=== PATIENT | female | born 1990 | race Caucasian/White ===

== ENCOUNTER 2016-07-27 00:06 | Inpatient (IN) | payer MEDICAID ==
[~2016-07-27 00:06] MED LIST: LIDOCAINE HCL 50 ML VIAL PERI PRN; ONDANSETRON HCL/PF 2 MG/ML VIAL IV PRN; OXYTOCIN/DEXTROSE 5%-WATER 30 UNITS/500 ML BAG IV ONE; RINGERS SOLUTION,LACTATED 1,000 ML IV ONE
[2016-07-27] MEDS: DEXTROSE 5%-LACTATED RINGERS 1,000 ML IV PRN ×2 (00:40→04:44)
[2016-07-27] MEDS ORDERED: BUPIVACAINE HCL/0.9 % NACL/PF 250 ML EP PRN (06:14)
[2016-07-27] MEDS ORDERED: fentaNYL CITRATE/PF 50 MCG/ML AMPUL IT SCH (06:15)
--- NOTE | 2016-07-27 06:19 | OR ---
Anesthesia Pre Procedure Eval Date of Service: 07/27/16 Pre Procedure Evaluation: Last Vital Signs Temp 36.3 C L 01/24/16 14:21 Pulse Resp BP 115/62 01/24/16 14:21 Pulse Ox Anesthesia Pre Procedure Evaluation Heart Rate:78 Blood Pressure: 114/79 Termperature:36.7 Respiratory Rate:18 SaO2:100 DATE: 07/27/2016 TIME: 6:15 INDICATIONS: Active labor, labor pain PAST MEDICAL HISTORY: Multipara patient in active labor requesting labor analgesia EXAM: Heart regular; lungs clear ASSESSMENT OF MEDICAL STATUS: Appropriate candidate for labor analgesia PLANNED PROCEDURE: Combination spinal epidural for labor analgesia Home Medications: HOME MEDICATIONS Vit#96/Ferrous Fum/FA [ S] 1 tab PO DAILY 08/22/13 [Last Taken 07/26/16 09:00] Iron 1 tab PO DAILY 02/23/14 [Last Taken 07/26/16 09:00] Ibuprofen [Motrin] 200 - 800 mg PO Q6H PRN #100 tab 05/03/14 [Last Taken Unknown ] Atenolol [Tenormin] 1 tab PO DAILY 07/27/16 [Last Taken 07/26/16 09:00] Magnesium 250 mg PO BID 07/27/16 [Last Taken 07/26/16 21:00] Ranitidine HCl [Zantac] 1 tab PO PRN 07/27/16 [Last Taken 07/26/16 21:00]
--- NOTE | 2016-07-27 06:50 | OR ---
Anesthesia Procedure Note - Anesthesia Procedure Note Date of Service: 07/27/16 Narrative: Vital Signs - Last Taken Temp 36.3 C L 01/24/16 14:21 Pulse Resp BP 115/62 01/24/16 14:21 Pulse Ox 07/27/16 06:48 ANESTHESIA PROCEDURE NOTE Date of Procedure: 07/27/2016 Time of procedure: 08 22. Performed by: SYLWIA Hernandez CRNA, MSN Stick Inserter: Roopa Horan RN. Preprocedure diagnosis: Active labor, labor pain. Post procedure diagnosis: Same. Procedure: Labor Epidural Placement L3 4. Indications: Labor pains. Findings: See below. Details of the procedure: The patient was placed on the side of the bed in sitting position. The patient was prepped with DuraPrep and draped in a sterile fashion. Lidocaine 1% was infiltrated to the skin and subcutaneous tissues at the level of the L3 4 interspace. The epidural space was identified using a 18-gauge Tuohy needle with [id number] technique. Fentanyl 20 g was given intrathecally the intrathecal needle was then removed and the epidural catheter was threaded approximately 4 cm, the epidural needle was then removed, and after careful aspiration 3 mL of 1.5% lidocaine with 1-200,000 epinephrine was injected without change in maternal heart rate or sensorium. The catheter was then taped in place. EBL: Minimal. Fluids: N/A. Specimen: N/A. Post procedure condition: The patient tolerated the procedure well with good relief. No complications were noted. Thank you for this consultation. Joseph Munoz CRNA, SUCTION ROLLER, MSN
--- NOTE | 2016-07-27 07:54 | OR ---
Operative Report - Dictated Report Narrative: Spontaneous vaginal delivery of viable male at 0710 on 07/27/2016 with Apgars 8 and 9, weighing 3749 g, in KIMMY position. Nuchal cord 1. Cord clamping delayed approximately 1 minute Placenta delivered complete, intact, with three vessel cord Estimated blood loss: less than 50 ml Lacerations: Second-degree vaginal laceration (3 cm) repaired with 3-0 Vicryl Rapide History for MU Definition: * The number of deliveries resulting in a live the patient experienced prior to current hospitalization * The previous delivery of live twins or any live multiple gestation is considered one live event. *If primagravida or nulliparous is documented select zero for the number of previous live births. Live Events: 3
[2016-07-27] MEDS ORDERED: BISACODYL 10 MG SUPP.RECT RC PRN (07:56)
[2016-07-27] MEDS ORDERED: HYDROCORTISONE 30 APPL TUBE TP PRN (07:56)
[2016-07-27] MEDS ORDERED: BENZOCAINE/MENTHOL 81 SPRAY CAN TP PRN (07:56)
[2016-07-27] MEDS ORDERED: OXYTOCIN/DEXTROSE 5%-WATER 30 UNITS/500 ML BAG IV ONE (07:56)
[2016-07-27] MEDS ORDERED: GLYCERIN/WITCH HAZEL LEAF 40 APPL BOX TP PRN (07:56)
[2016-07-27] MEDS ORDERED: SENNOSIDES 8.6 MG TABLET PO PRN (07:56)
[2016-07-27] MEDS ORDERED: oxyCODONE HCL/ACETAMINOPHEN 1 TAB TABLET PO PRN (07:56)
[2016-07-27] MEDS ORDERED: diphenhydrAMINE HCL 25 MG CAPSULE PO PRN (08:33)
[2016-07-27] MEDS: PRENATAL VIT#96/FERROUS FUM/FA 1 TAB TABLET PO SCH (08:36)
[2016-07-27] MEDS: DOCUSATE SODIUM 100 MG CAPSULE PO SCH ×2 (08:37→20:17)
[2016-07-27] MEDS: ATENOLOL 25 MG TABLET PO SCH (13:17)
[2016-07-27] MEDS: oxyCODONE HCL/ACETAMINOPHEN 1 TAB TABLET PO PRN (13:17)
[2016-07-27] MEDS: IBUPROFEN 800 MG TABLET PO PRN (13:18)
[2016-07-27] MEDS: MAGNESIUM 250 MG PO SCH ×2 (14:09→20:17)
[2016-07-28] MEDS: IBUPROFEN 800 MG TABLET PO PRN ×4 (00:41→20:51)
[2016-07-28] MEDS: oxyCODONE HCL/ACETAMINOPHEN 1 TAB TABLET PO PRN ×4 (00:41→20:13)
[2016-07-28] MEDS ORDERED: PRENATAL VIT#96/FERROUS FUM/FA 1 TAB TABLET ONE (08:25)
[2016-07-28] MEDS: PRENATAL VIT#96/FERROUS FUM/FA 1 TAB TABLET PO SCH (08:26)
[2016-07-28] MEDS: MAGNESIUM 250 MG PO SCH ×2 (08:27→22:02)
[2016-07-28] MEDS: DOCUSATE SODIUM 100 MG CAPSULE PO SCH ×2 (08:27→20:13)
[2016-07-28] MEDS: ATENOLOL 25 MG TABLET PO SCH (08:41)
--- NOTE | 2016-07-28 08:54 | PN ---
Subjective - Date and Time Seen Date: 07/28/16 Time: 08:53 - seen at 6:30 Objective - Vitals Vitals: Last Vital Signs Temp 36.4 C L 07/28/16 08:30 Pulse 84 07/28/16 08:41 Resp 18 07/28/16 08:30 BP 118/59 07/28/16 08:41 Pulse Ox 97 07/28/16 08:30 Patient denies complaints. Lochia wnl Abdomen - soft, nontender Uterus - firm, at umbilicus - 1 No calf tenderness Impression: day #1 - s/p spontaneous vaginal delivery. Plan: Continue routine care
[2016-07-29] MEDS: IBUPROFEN 800 MG TABLET PO PRN (03:56)
[2016-07-29] MEDS: oxyCODONE HCL/ACETAMINOPHEN 1 TAB TABLET PO PRN (03:56)
[2016-07-29] MEDS: DOCUSATE SODIUM 100 MG CAPSULE PO SCH (09:07)
[2016-07-29] MEDS: ATENOLOL 25 MG TABLET PO SCH (09:07)
[2016-07-29] MEDS: PRENATAL VIT#96/FERROUS FUM/FA 1 TAB TABLET PO SCH (09:07)
[2016-07-29 09:09] VITALS: BP 101/55
[2016-07-29] MEDS: MAGNESIUM 250 MG PO SCH (09:09)
--- NOTE | 2016-07-29 17:02 | PN ---
Subjective - Date and Time Seen Date: 07/29/16 Time: 17:02 - patient seen between 8:30 and 9 this morning Objective - Vitals Vitals: Last Vital Signs Temp 36.5 C 07/29/16 07:15 Pulse 69 07/29/16 09:07 Resp 20 07/29/16 07:15 BP 101/55 07/29/16 09:07 Pulse Ox 98 07/29/16 07:15 Patient denies complaints. Lochia wnl Abdomen - soft, nontender Uterus - firm, at umbilicus - 2 No calf tenderness Impression: day #2 - s/p spontaneous vaginal delivery. Plan: Routine discharge instructions
== END 2016-07-29 12:00 | disposition home or self-care (01) | DRG 775 ==
LOC: OB 00:06 → MS 14:48
PROVIDERS: ADMIT Obstetrics & Gynecology; ATTEND Obstetrics & Gynecology
PROC: 10E0XZZ Delivery of Products of Conception, External Approach (ICD-10-PCS; principal; 2016-07-27)
PROC: 0KQM0ZZ Repair Perineum Muscle, Open Approach (ICD-10-PCS; 2016-07-27)
PROC: 3E033VJ Introduction of Other Hormone into Peripheral Vein, Percutaneous Approach (ICD-10-PCS; 2016-07-27)
PROC: 4A1HXCZ Monitoring of Products of Conception, Cardiac Rate, External Approach (ICD-10-PCS; 2016-07-27)
PROC: 3E0S3CZ (ICD-10-PCS; 2016-07-27)
DX: O69.81X0 Labor and delivery complicated by cord around neck, without compression, not applicable or unspecified (principal); O70.1 Second degree perineal laceration during delivery; Z3A.40 40 weeks gestation of pregnancy; Z37.0 Single live birth